=== PATIENT | female | born 1960 | race Caucasian/White ===

== ENCOUNTER 2018-06-24 10:50 | Outpatient (CLI) | payer OTHER, SELFPAY ==
--- NOTE | 2018-06-25 15:35 | ONE_ITS ---
DATE OF SERVICE: June 24, 2018 CHIEF COMPLAINT: Numb fingertips and painful elbows. EMPLOYER: [employer] since 2003. ASSESSMENT: Bilateral carpal tunnel syndrome. Bilateral arm and hand vibration syndrome. EDUCATION: 1. Letter provided by Jayne was reviewed by Nurse Provisioning Specialist. The 8-pound reference was interpreted to pertain to vocational rehab and not return to work. Return to work is reasonable at this point in time. 2. Gradual work of 2-hour duration for two weeks then increase an additional 2 hours for a total of 4 hours an additional two weeks with ten minute breaks every hour. 3. Two-pound weight restriction; no skin exposure to wet environments. Bilateral wrist splints; anti-vibration gloves as needed. Stop work duties if symptoms return or worsen and contact Occupational Medicine. 4. Work site visit is recommended to be performed by Nurse Provisioning Specialist to ensure duties performed do not exceed restrictions. PLAN: 1. Work restrictions per Work Status Form, refer to EDUCATION. 2. Work site visit to assess performed duties. 3. Continue PT/OT, don anti-vibration gloves as needed at home and at work. 4. Moisturizing cream p.r.n. 5. OTC ibuprofen or Tylenol p.r.n. 6. Bilateral wrist splints p.r.n. 7. Rheumatology follow-up July 15, 2018. Assessment necessary to identify if autoimmune disease exists and if so, to what degree does the disease contribute to her presentation. 8. Breathing/relaxation exercises t.i.d. 9. Walking q.d. in fresh air. 10. Follow-up in one month Occupational Medicine 2017; return to clinic sooner if condition worsens. More than 50% of this visit spent in the planning and coordination of care. Plan of care reviewed with patient, who verbalized understanding and agreement. +++++++++++++++++++++++ SUBJECTIVE: Jayne presents for a follow-up of fingertips and elbows. Transportation was provided for this appointment. Continued improvement noted. Cracking of the fingertips remains absent. Numb sensation is diminishing but remains and finger tip pain sensation is almost resolved, whereas elbow discomfort remains. Left thumb = 0/10; previously 0/10 numb. #2 = 0/10, previously 0/10 numb. #3 = 0/10, previously 4/10 numb, sensitive at crevice between new nail growth and skin. #4 = 0/10, previously 0/10 numb. #5 = 0/10, previously 0/10 no numbness. Right thumb = 0/10, previously 0/10 no numbness. #2 = 0/10, previously 0/10 numb. #3 = 0/10, previously 2/10 numb with intermittent pain. #4 = 0/10, previously 0/10 numb. #5 = 0/10, previously 0/10 no numbness. States therapy is helping tremendously and is performing home exercises 4 to 5 times per day. An anti-inflammatory patch has been placed on both elbows, which gives her good relief for a 14-hour duration. Feels her right arm is 80% of normal ability pretty good and has noted a big improvement with her ability to move her right upper extremity. Feels her left arm is 45% of normal ability; had a setback after reading a letter, which stated she needed to lift 8 pounds for a return to work -- she therefore increased her exercise effort and noted increased discomfort, primarily of the left elbow. She obtained anti- vibration gloves size small on 06/23/16; mediums were initially ordered then returned because they were too big. Fine motor movements continue to improve, yet are still awkward (picking up pens , brushing her teeth, handwriting, handling dishes); movements remain slow and cautious. Tolerating submerging both hands in water slowly then increasing temperature. Moisturizer to fingertips no longer needed. Significant discomfort remains with pressure of showerhead water or strong breeze. MEDICATIONS: Continues with 5 mg Amlodipine, as prescribed by PCP. Continues to self-medicate with Tylenol for elbow discomfort. RHEUMATOLOGY: Has not received further information regarding pending [place] appointment. ELBOW: Bilateral elbow pain continues, which had been improving until she increased her exercise efforts; left remains more bothersome than right. Maintains bilateral wrist splints and left elbow brace, which helps with discomfort. Will remove for 1-hour intervals. VIBRATION: Previously stated ability to tolerate 6-mile round trip without symptoms returning or worsening. Today notes symptoms returned during the last 3 miles. SMOKING: Continues with 3 cigarettes per day. First cigarette now at 10 o' clock; second at 1400; third at 2100. Continues to have success in strategies to assist in smoking cessation. SLEEP: Last appointment sleep pattern had improved with a 5-hour sleep duration. Today she reports sleeping 3 to 4 hour duration; awakens spontaneously without pain and has difficulty resuming sleep. Continues to nap during the day. STRESS: Continues to utilize CBT strategies to decrease her stress with good relief. SKIN: Skin discoloration on her lower buttocks, back of thighs and calves remains with sensitivity noted back of thighs. Believing the Amlodipine is causing the reaction, Jayne did not take the Amlodipine for one day and noted improvement in the skin sensitivity; however she also noted her systolic blood pressure was 180 so she resumed the Amlodipine and the sensitivity returned. Discoloration on left leg seems darker than the right; previously appeared similar. Also thinks there is slight discoloration at her neck line and forearms. REVIEW OF SYSTEMS: Denies chest pain, palpitations. Denies shortness of breath or dyspnea. Denies GI or distress. Denies constipation, diarrhea, heartburn acid reflux, difficulty swallowing. Denies headache or visual changes. Denies skin changes. PAST MEDICAL HISTORY: 1. Depression. 2. Hypertension, 2011. 3. Concussion, 2013. 4. Osteoporosis. MEDICATIONS: Ramipril 10 mg Calcium 500 mg PVA Amlodipine 5 mg ALLERGIES: No known drug allergies. SOCIAL HISTORY: Tobacco - previously 1/2 pack per day, now three cigarettes per day. ETOH - beer - Two to three beers/day, none since being taken out of work; has also eliminated soft drinks. Single. OBJECTIVE: GENERAL: 58-year-old white female. Alert, oriented x3, smiling. Became anxious and tearful when speaking about her recovery. Bilateral wrist splints and left elbow brace removed for exam. Nurse Provisioning Specialist, Judith, present for examination. HANDS: Erythema, edema, cracking and fissures no longer evident bilaterally. Bleeding and drainage remain absent. ROM: Bilateral improvement engineer continues to improve and is now able to achieve loose improvement engineer with fingertips lightly touching palm of hands. ELBOWS: Bilateral discomfort remains with palpation of lateral epicondyles and brachial radialis muscle; left remains worse than right. SKIN: Slight erythema remains region of neckline and arms. Ecchymotic skin discoloration noted posteriorly and medially of lower extremities beginning inferior and medial aspect of buttocks and extending to hamstrings. Discoloration is absent in popliteal region of right lower extremity and resumes down to mid calf. Left lower extremity discoloration extends from buttocks to calf. Left lower extremity discoloration more intense compared to right.
== END 2018-06-24 10:51 ==
PROVIDERS: Visit Provider Nurse Practitioner Family
DX: M79.641 Pain in right hand (principal); M79.642 Pain in left hand; G56.01 Carpal tunnel syndrome, right upper limb; G56.02 Carpal tunnel syndrome, left upper limb; R29.818 Other symptoms and signs involving the nervous system
CPT/HCPCS: 99214